=== PATIENT | female | born 1955 ===

== ENCOUNTER 2024-10-12 14:28 | Observation (INO) | payer SELFPAY ==
[2024-10-12 15:55] LABS: ABSOLUTE IMMATURE GRANULOCYTES 0.03 x10^3/uL (0.0-0.031); BASOPHILS # 0.11 x10^3/uL (0.01-0.08); EOSINOPHIL % 0.5 % (0.7-5.8); EOSINOPHILS # 0.05 x10^3/uL (0.04-0.36); HEMATOCRIT 38.8 % (34.1-44.9); HEMOGLOBIN 12.8 g/dL (11.2-15.7); MEAN PLT VOLUME 9.9 fl (9.4-12.3); MONOCYTE # 0.52 x10^3/uL (0.24-0.86); MONOCYTE % 4.8 % (4.7-12.5); PLATELET COUNT # 290 x10^3/uL (182-369); RDW 13.7 % (12.4-16.4)
[2024-10-12 15:56] LABS: PH,URINE 6.5 (5.0-8.0); URINE APPEARANCE CLEAR; URINE BILIRUBIN NEGATIVE (NEGATIVE); URINE COLOR YELLOW; URINE GLUCOSE (UA) NEGATIVE (NEGATIVE); URINE KETONE NEGATIVE (NEGATIVE); URINE LEUK ESTERASE NEGATIVE (NEGATIVE); URINE NITRITE NEGATIVE (NEGATIVE); URINE PROTEIN TRACE (NEGATIVE); URINE UROBILINOGEN 0.2 mg/dL (0.2-1.0)
[2024-10-12] MEDS: SODIUM CHLORIDE 0.9% 500 ML INFUS.BAG IV ONE (16:15)
[2024-10-12 16:16] LABS: POTASSIUM 4.2 mmol/L (3.5-5.1)
[2024-10-12 16:17] LABS: ALBUMIN 3.7 g/dl (3.4-5.0); BLOOD UREA NITROGEN 24.5 mg/dL (7-18); CALCIUM 9.5 mg/dL (8.5-10.1)
[2024-10-12 16:20] LABS: CREATININE 1.1 mg/dL (0.55-1.3)
[2024-10-12 16:22] LABS: BILIRUBIN,TOTAL 0.5 mg/dL (0.2-1); TOT PROT 7.5 g/dl (6.4-8.2)
[2024-10-12] MEDS ORDERED: oxyCODONE HCL 5 MG TABLET ONE ×2 (16:35→18:00)
[2024-10-12] MEDS: oxyCODONE HCL 5 MG TABLET PO ONE ×2 (16:40→18:06)
[2024-10-12] MEDS ORDERED: KETOROLAC TROMETHAMINE 15 MG/ML VIAL ONE (18:01)
[2024-10-12] MEDS ORDERED: LIDOCAINE 4% PATCH TP ONE (18:01)
[2024-10-12] MEDS: KETOROLAC TROMETHAMINE 15 MG/ML VIAL IVPUSH ONE (18:07)
[2024-10-12] MEDS: LIDOCAINE 5% TOPICAL PATCH TP ONE (18:20)
[2024-10-12] MEDS ORDERED: morphine SULFATE 4 MG/ML VIAL ONE (19:39)
[2024-10-12] MEDS ORDERED: TAMSULOSIN HCL 0.4 MG CAP ONE (19:40)
[2024-10-12] MEDS ORDERED: CEFTRIAXONE 1 G/50 ML PREMIX 50 ML IVPB ONE (19:40)
[2024-10-12] MEDS: TAMSULOSIN HCL 0.4 MG CAP PO ONE (20:03)
[2024-10-12] MEDS: morphine SULFATE 4 MG/ML VIAL IVPUSH ONE (20:04)
[2024-10-12] MEDS: CEFTRIAXONE 1 GM in DEXTROSE 5%-WATER - 50 ML IVPB ONE (20:05)
[2024-10-12] MEDS ORDERED: KETOROLAC TROMETHAMINE 15 MG/ML VIAL IVPUSH PRN (20:43)
[2024-10-12 22:09] LABS: INR 0.98 (0.83-1.09); PROTHROMBIN TIME (PATIENT) 10.7 SEC (9.7-13.0)
[2024-10-12 22:11] LABS: ACTIVATED PTT 31.2 SECONDS (25.2-36.5)
[2024-10-13 01:03] VITALS: BMI 34.8
[2024-10-13] MEDS: SODIUM CHLORIDE 1,000 ML IV SCH ×3 (01:10→15:25)
[2024-10-13] MEDS: LIDOCAINE PATCH REMOVAL MC SCH (01:21)
[2024-10-13] MEDS ORDERED: TAMSULOSIN HCL 0.4 MG CAP PO SCH ×3 (08:30→22:00)
[2024-10-13] MEDS: VALSARTAN 160 MG TABLET PO SCH (09:16)
[2024-10-13] MEDS: CEFTRIAXONE 1 G/50 ML PREMIX 50 ML IVPB SCH (09:16)
[2024-10-13 09:50] LABS: ABSOLUTE IMMATURE GRANULOCYTES 0.01 x10^3/uL (0.0-0.031); BASOPHILS # 0.08 x10^3/uL (0.01-0.08); EOSINOPHIL % 1.9 % (0.7-5.8); EOSINOPHILS # 0.11 x10^3/uL (0.04-0.36); HEMATOCRIT 35.4 % (34.1-44.9); HEMOGLOBIN 11.5 g/dL (11.2-15.7); MCHC 32.5 g/dl (32.2-35.5); MEAN CELL VOLUME 89.2 fl (79.4-94.8); MEAN PLT VOLUME 10.4 fl (9.4-12.3); MONOCYTE # 0.46 x10^3/uL (0.24-0.86); MONOCYTE % 7.8 % (4.7-12.5); PLATELET COUNT # 269 x10^3/uL (182-369); RDW 14.1 % (12.4-16.4)
[2024-10-13] MEDS ORDERED: amLODIPine BESYLATE 5 MG TABLET (FP) PO SCH (10:00)
[2024-10-13] MEDS ORDERED: PATIENT'S OWN MEDICATION (NON-FORMULARY) (Amlodipine Besylate/Valsartan [Amlodipine-Valsar PO SCH (10:00)
[2024-10-13] MEDS ORDERED: ENOXAPARIN NA (PORCINE) 40 MG/0.4 ML DISP.SYRIN SQ SCH (10:00)
[2024-10-13 10:12] LABS: POTASSIUM 3.1 mmol/L (3.5-5.1)
[2024-10-13 10:17] LABS: BLOOD UREA NITROGEN 14.9 mg/dL (7-18)
[2024-10-13 10:18] LABS: ALBUMIN 3.1 g/dl (3.4-5.0); CALCIUM 8.6 mg/dL (8.5-10.1)
[2024-10-13 10:21] LABS: CREATININE 0.6 mg/dL (0.55-1.3); PHOSPHOROUS 3.2 mg/dL (2.5-4.9)
[2024-10-13 10:22] LABS: BILIRUBIN,TOTAL 0.5 mg/dL (0.2-1); TOT PROT 6.2 g/dl (6.4-8.2)
[2024-10-13] MEDS: DEXTROSE 5%-LACTATED RINGERS 1,000 ML IV SCH (10:55)
[2024-10-13] MEDS ORDERED: PROPOFOL 20 ML ONE (13:24)
[2024-10-13] MEDS ORDERED: MIDAZOLAM HCL 2 MG/2 ML SINGLE DOSE VIAL ONE (13:25)
[2024-10-13] MEDS ORDERED: DEXAMETHASONE SOD PHOSPHATE 4 MG/1 ML VIAL ONE (13:50)
[2024-10-13] MEDS ORDERED: ONDANSETRON 4 MG/2 ML VIAL ONE (13:50)
[2024-10-13] MEDS ORDERED: KETOROLAC TROMETHAMINE 30 MG/1 ML VIAL ONE (13:51)
[2024-10-13] MEDS ORDERED: ONDANSETRON 4 MG/2 ML VIAL IVPUSH PRN (14:13)
[2024-10-13] MEDS ORDERED: ACETAMINOPHEN INJECTION 100 ML ONE (14:39)
[2024-10-13] MEDS: ACETAMINOPHEN 1000 MG/100 ML BAG IVPB PRN (14:41)
[2024-10-13 14:52] VITALS: RESP 18
[2024-10-13] MEDS ORDERED: KETOROLAC TROMETHAMINE 15 MG/ML VIAL IVPUSH PRN (14:58)
[2024-10-13] MEDS ORDERED: DEXTROSE 5%-LACTATED RINGERS 1,000 ML IV SCH (14:58)
[2024-10-13] MEDS ORDERED: ACETAMINOPHEN 1000 MG/100 ML BAG IVPB PRN (14:58)
[2024-10-13] MEDS: LACTATED RINGERS SOLUTION 1,000 ML IV SCH (15:00)
[2024-10-13 15:15] VITALS: BP 131/83; PULSE 82; TEMP 97.6
[2024-10-13] MEDS ORDERED: POTASSIUM CHLORIDE ORAL LIQUID 20 MEQ/15 ML PO ONE (19:17)
[2024-10-13] MEDS ORDERED: LIDOCAINE PATCH REMOVAL MC SCH (22:00)
[2024-10-14] MEDS ORDERED: VALSARTAN 160 MG TABLET PO SCH (10:00)
[2024-10-14] MEDS ORDERED: CEFTRIAXONE 1 G/50 ML PREMIX 50 ML IVPB SCH (10:00)
[2024-10-14] MEDS ORDERED: POTASSIUM CHLORIDE TABS 20 MEQ TABLET.ER (FP) PO SCH (10:00)
[2024-10-14] MEDS ORDERED: amLODIPine BESYLATE 5 MG TABLET (FP) PO SCH ×2 (10:00)
== END 2024-10-13 20:45 | disposition home or self-care (01) ==
LOC: JER 14:28 → UNDOADMOB 18:53 → JERBED 18:53 → INTOOBSV 18:53 → JERBED 23:43 → J6S 23:43 → JERBED 10-13 08:18 → J6S 10-13 08:18
PROVIDERS: ADMIT Internal Medicine; ATTEND Student in an Organized Health Care Education/Training Program
PROC: 0T778ZZ Dilation of Left Ureter, Via Natural or Artificial Opening Endoscopic (ICD-10-PCS; principal; 2024-10-12)
PROC: 3E033NZ Introduction of Analgesics, Hypnotics, Sedatives into Peripheral Vein, Percutaneous Approach (ICD-10-PCS; 2024-10-13)
PROC: 3E03329 Introduction of Other Anti-infective into Peripheral Vein, Percutaneous Approach (ICD-10-PCS; 2024-10-13)
PROC: 3E0337Z Introduction of Electrolytic and Water Balance Substance into Peripheral Vein, Percutaneous Approach (ICD-10-PCS; 2024-10-13)
PROC: 3E0333Z Introduction of Anti-inflammatory into Peripheral Vein, Percutaneous Approach (ICD-10-PCS; 2024-10-13)
DX: N13.2 Hydronephrosis with renal and ureteral calculous obstruction (principal); I10 Essential (primary) hypertension; Z87.442 Personal history of urinary calculi; Z88.5 Allergy status to narcotic agent
CPT/HCPCS: 36415; 74176-TC; 76000-TC-FY; 76775-TC; 80053; 81003; 83735; 84100; 85025; 85610; 85730; 86850; 86900; 86901; 87086; 94760; 96361; 96365; 96366; 96375; 99285-25; C1758; G0378; J0131